=== PATIENT | male | born 1960 | race Caucasian/White ===

== ENCOUNTER 2023-11-25 10:50 | Emergency (ER) | payer MEDICARE, SELFPAY ==
[2023-11-25 10:50] VITALS: BP 175/93; PULSE 108; RESP 18; TEMP 36.8; O2SAT 99
--- NOTE | 2023-11-25 11:07 | ED.PSYCH ---
HPI - Psych General Chief Complaint: Psychiatric Symptoms Stated Complaint: hallucination Time Seen by Provider: 11/25/23 11:07 Source: patient Mode of arrival: ambulatory Limitations: no limitations History of Present Illness HPI Narrative: patient is a 63-year-old male dropped off by sure if. Patient asked for a ride to the emergency room due to hallucinations of visual and auditory. The patient has known paranoid schizophrenia and has been off his medicine for some time. He is a poor historian. He also has a right eye infection. He also has a urine smell and urine on him. No suicide or homicide ideations. He is voluntary. MD complaint: altered mental status Onset (ago): unknown Duration: constant History of same: Yes Relieving factors: medication Exacerbating factors: none Context: not taking psychiatric medications Associated psychiatric symptoms: auditory hallucinations and visual hallucinations Associated symptoms: denies other symptoms Treatments prior to arrival: none Related Data Allergies Allergy/AdvReac Type Severity Reaction Status Date / Time No Known Allergies Allergy Verified 11/25/23 10:59 Review of Systems Review of Systems: All systems reviewed & are unremarkable except as noted in HPI and below Constitutional: Constitutional: Reports no additional constitutional complaints Eyes: Eyes: Reports no additional eye complaints ENT: Reports system reviewed and no additional complaints, except as documented Cardiovascular: Cardiovascular: Reports no additional cardiovascular complaints Respiratory: Respiratory: Reports no additional respiratory complaints Gastrointestinal: Gastrointestinal: Reports no additional gastrointestinal complaints Genitourinary: Genitourinary: Reports no additional male genitourinary complaints Musculoskeletal: Musculoskeletal: Reports no additional musculoskeletal complaints Integumentary/Breasts: Skin/Breast: Reports system reviewed and no additional complaints, except as docu Neurologic: Reports system reviewed and no additional complaints, except as documented Psychiatric: Psychiatric: Reports no additional psychiatric complaints Endocrine: Endocrine: Reports no additional endocrine complaints Hematologic/Lymphatic: Hematologic/Lymphatic: Reports no additional hematologic/lymphatic complaints Allergic/Immunologic: Allergic/Immunologic: Reports no additional allergic/immunologic complaints Exam Const: General: healthy appearing Nutritional Appearance: well nourished Orientation/consciousness: patient oriented x3 HENMT: Head: normal to inspection Ears: external ears normal Face/Nose/Sinus: Normal external nose present Eyes: Conjunctivae: conjunctivae normal Pupils: Equal, round and reactive pupils present EOM: EOMs intact bilaterally Other: right periorbital area is inflamed and red; right eye has crusting and yellowing of the eyelids and some conjunctivitis Neck: Neck: normal visual inspection Chest: Chest palpation & inspection: normal inspection of the chest Resp: Effort & Inspection: normal respiratory effort and not labored Auscultation: clear to auscultation bilaterally Cardio: Rate: regular rate Rhythm: regular rhythm Heart sounds: no murmurs GI: Inspection: non-distended GI Palp: Yes Soft to palpation and No Tenderness to palpation present (GI) Auscultation: normal bowel sounds : General: Yes bladder normal to palpation Back/Spine/Pelvis: Back: no CVA tenderness Skin: General skin exam: normal color Rashes: rash noted Wounds: wound noted Other: Patient has some excoriation around his umbilicus what appears to be insect bites as well as left hand healing wound; no obvious other infections beyond the right eyelid area Neuro: General: patient oriented x3 Cranial nerves: Yes Nystagmus not present Speech: normal speech Gait exam (Neuro): Normal gait present Extrem: General: normal to inspection Psych: Mental Status
[2023-11-25] MEDS: OLANZapine 5 MG, WATER, STERILE FOR INJECTION 2.1 ML IM (11:19)
[2023-11-25] MEDS: NEOMYCIN/POLYMYXIN/HYDROCORT 7.5 ML EYE DROPS (*BKC) 2 DROP RIGHT EYE (11:22)
[2023-11-25] MEDS: AMOXICILLIN/CLAVULANATE K 500-125 MG TAB 1 TABLET PO (11:22)
[2023-11-25] MEDS: LOSARTAN POTASSIUM 50 MG TABLET PO (11:30)
[2023-11-25 11:35] LABS: Basophils Absolute Auto 0.02 K/mm3 (0.00-0.10); Basophils Percent Auto 0.2 % (0.0-1.0); Eosinophils Absolute Auto 0.01 K/mm3 (0.02-0.50); Eosinophils Percent Auto 0.1 % (1.0-6.0); Hematocrit 35.2 % (40.0-54.0); Hemoglobin 12.4 g/dL (14.0-18.0); Immature Granulocyte Absolute 0.04 K/mm3 (0.00-0.00); Immature Granulocyte Percent A 0.3 % (0.0-0.0); Lymphocytes Absolute Auto 1.52 K/mm3 (1.10-4.50); Lymphocytes Percent Auto 12.1 % (18.0-42.0); Mean Corpuscular HGB Conc 35.2 g/dL (32-36); Mean Corpuscular Hemoglobin 30.8 pg (27.0-31.0); Mean Corpuscular Volume 87.3 fL (78.0-102.0); Mean Platelet Volume 9.6 fl (8.7-11.0); Monocytes Absolute Auto 1.25 K/mm3 (0.10-0.90); Neutrophils Absolute Auto 9.69 K/mm3 (1.70-7.20); Neutrophils Percent Auto 77.3 % (50.0-70.0); Platelet Count Result 273 K/mm3 (150-420); Red Blood Count 4.03 M/mm3 (4.70-6.10); Red Cell Distribution Width 13.2 % (11.6-14.4); White Blood Count 12.5 K/mm3 (4.8-10.8)
--- NOTE | 2023-11-25 11:50 | PC.NURSE ---
PT UP TO RR WITHOUT DIFFICULTY, PT HAS BEEN PROVIDED SANDWICH TRAY. PT IS COOPERATIVE AT THIS TIME, CONTINUES TO REPORT SEEING SPIDERS. PT WAS COOPERATIVE WITH LAB WORK AND MEDICATION ADMINISTRATION. WARM WASH CLOTH PROVIDED FOR PT TO WIPE RT EYE, GREENISH-YELLOW DISCHARGE AND CRUST NOTED TO EYELASHES. WILL CONTINUE TO MONITOR. LUNCH TRAY ORDERED.
[2023-11-25 12:06] LABS: Add Urine Microscopic? NO; Appearance Urine Clear (Clear); Bilirubin Urine Negative (Negative); Blood Urine Negative (Negative); Color Urine Light Yellow (Yellow); Glucose Urine UA Negative (Negative); Ketones Urine Negative (Negative); Leukocyte Esterase Ur Negative LEU/UL (Negative); Nitrate Urine Negative (Negative); Protein Urine Negative (Negative); Specific Grav Ur <= 1.005 (1.010-1.020)
[2023-11-25 12:30] VITALS: BP 150/78; PULSE 97; RESP 18; TEMP 36.8; O2SAT 100
--- NOTE | 2023-11-25 12:41 | PC.NURSE ---
pt has eaten and is resting on stretcher with lights off. pt had reported prior to resting that his mind was feeling better. will continue to monitor.
[2023-11-25 12:54] LABS: Ethanol < 10 mg/dL (<10)
[2023-11-25 13:05] LABS: Amphetamine Screen Urine Negative (Negative); Barbiturate Screen Urine Negative (Negative); Benzodiazepines Screen Urine Negative (Negative); Cannabinoid Screen Urine Positive (Negative); Cocaine Screen Urine Negative (Negative); Methadone Screen Urine Negative (Negative); Opiate Screen Urine Negative (Negative)
--- NOTE | 2023-11-25 13:33 | PC.NURSE ---
PT IS RESTING WITHOUT DISTRESS, AROUSES TO TACTILE STIMULATION. PT IS AWAITING RE-EVALUATION, WHEN HE BECOMES MORE ALERT. WILL CONTINUE TO MONITOR.
[2023-11-25 14:06] LABS: Alanine Aminotransferase 76 U/L (6-50); Albumin Level 4.3 g/dL (3.5-5.1); Alkaline Phosphatase 91 U/L (38-126); Anion Gap 10 mmol/L (4-12); Aspartate Amino Transferase 166 U/L (17-59); Bilirubin,Total 0.9 mg/dL (0.2-1.3); Blood Urea Nitrogen 17 mg/dL (9-20); Carbon Dioxide 28 mmol/L (22-30); Chloride 94 mmol/L (98-107); Estimated CRCL calculation 90 ml/min; Estimated Glomerular Filt Rate > 60; Glucose 119 mg/dL (65-110); Osmolality Calculated 276 mOsm/kg (285-295); Potassium 2.9 mmol/L (3.4-5.0); Sodium 132 mmol/L (137-145)
[2023-11-25] MEDS: POTASSIUM CHLORIDE 20 MEQ ER TABLET 40 MEQ PO (15:10)
[2023-11-25 16:15] VITALS: BP 158/80; PULSE 90; RESP 18; TEMP 36.7; O2SAT 99
--- NOTE | 2023-11-25 16:40 | PC.NURSE ---
PT WOKE FROM [place] STATING HE FEELS BETTER, PT IS MORE COHERENT, COOPERATIVE, AND CALM. PT IS ABLE TO LOCATE A PHONE NUMBER FOR HIS DAUGHTER MARIA G [phone]. MARIA G WAS NOTIFIED, HOWEVER UNABLE TO CUSTOMER EXPERIENCE MANAGER PT DUE TO HER LIVING IN A ALF. SHE REPORTED PT WAS TO GO TO THE YARD IN [place], [place] TO MEET FROG AND DEANA SO THEY COULD TAKE HIM TO BILL. PT IS SUPPOSED TO BE STAYING WITH BILL. MARIA G DOES NOT HAVE FROG, DEANA, OR BILL'S CONTACT INFORMATION, DOES NOT KNOW THE NAME OF THE YARD HE IS SUPPOSED TO GO TO. RN IS ABLE TO LOCATE AN [facility], [employer] [facility] ON THE INTERNET. RN CALLS AND SPEAKS WITH THE GARMENT SEWING MACHINE OPERATOR, HE DOES KNOW NADINE- HIS NAME IS MICH CHIU, IS ABLE TO PROVIDE A PHONE NUMBER [phone], DOES NOT KNOW HIS ADDRESS AND REPORTS DEANA HAS NOT BEEN AROUND IN 8 MONTHS OR SO. RN CALLED THE NUMBER, HOWEVER IT WAS NOT IN SERVICE. RN CALLS DAUGHTER BACK AND SHE IS ABLE TO PROVIDER HER AUNT MONIE'S NUMBER [phone]. RN SPEAKS WITH MONIE WHO REPORTS PT HAS BEEN SUPPOSED TO BE COMING TO [place] FROM [place], [place] 2 WEEKS AGO AND SHE BEEN NOTIFIED BY LITZY LOFTON THAT HE HAD BEEN PICKED UP FOR INTOXICATION, HE WAS IN A LONGTERM IN [place], HAS BEEN IN [facility], AND HE WAS PICKED UP IN [place] TODAY AND BROUGHT TO [facility] ER. SHE REPORTS SHE HAS DRIVEN DOWN TO [place] TO ATTEMPT TO FIND PT WITHOUT SUCCESS AND DOES NOT HAVE A CAR TODAY TO CUSTOMER EXPERIENCE MANAGER PT FROM ER. SISTER REPORTS THEY DO NOT HAVE ANYWAY TO CONTACT HIM, HIS PHONE DOES NOT HAVE ANY MINUTES AND SO PT HAS BEEN WALKING FOR THE PAST 2 WEEKS, IN THE WRONG DIRECTION. PT WAS GIVEN A DINNER TRAY, FEET WERE CLEANED, AND SLIPPER SOCKS PROVIDED DUE TO FEET BEING SORE FROM THE WALKING AND HIS SOCKS WERE ADHERED TO HIS FEET, THEY WERE REMOVED AND THROWN IN THE TRASH. PT WAS GIVEN A TSHIRT, PROVIDED BY STAFF. WHEN HE ARRIVED HE HAD A ZIPPERED HOODIE JACKET FOR A SHIRT. PT IS EXTREMELY THANKFUL. [facility] CALLED AND IS WILLING TO TRANSPORT PT TO [place] AND CUSTOMER EXPERIENCE MANAGER HIS MEDICATIONS AT [facility] ON THE WAY. PT IS INSTRUCTED TO STAY IN THE VAN, NOT TO EXIT FOR ANY REASON. PT HAS BOOTS IN BAG, CARRYING THEM. PT VERBALIZED UNDERSTANDING. CAB IS PROVIDED WITH SISTER'S PHONE NUMBER, ER PHONE NUMBER, MONEY FOR THE TRANSPORT, MONEY FOR MEDICATIONS, AND INSTRUCTIONS TO MEET BILL AT THE Desk IN [place]. PT WALKED TO CAB PER RN, BELONGINGS WERE SENT WITH PT, MEDICATION ADMINISTRATION INSTRUCTIONS WERE CALLED TO SISTER MONIE, SHE IS AWARE OF ETA AND STATES BILL AND TERA WILL BE THERE TO MEET PT. RN CALLED PHARMACY TO CHECK STATUS OF RX, WAS GIVEN A TOTAL OUT OF POCKET GARCIAS AND REPORTED THEY WERE READY PRIOR TO PT DC. STAFF AND ERP PAY FOR THE CAB AND MEDICATIONS, PT DOES NOT HAVE ANY MONEY AND IS NOT SURE HOW LONG HE HAS BEEN OUT OF MONEY. PT REPORTS HE HAS BEEN SLEEPING ON THE STREETS FOR DAYS BECAUSE HE DIDN'T HAVE ANY MONEY FOR A HOTEL.
[2023-11-25 17:01] LABS: Phencyclidine Screen Urine Negative (Negative)
== END 2023-11-25 16:16 | disposition home or self-care (01) ==
PROVIDERS: Emergency Provider Emergency Medicine
DX: I10 Essential (primary) hypertension (principal); H10.31 Unspecified acute conjunctivitis, right eye; L03.213 Periorbital cellulitis; F20.0 Paranoid schizophrenia
CPT/HCPCS: 36415; 80053; 80307; 81003; 85025; 96372; 99283; A9270; J2359